=== PATIENT | male | born 2005 | race Asian ===

== ENCOUNTER 2023-01-13 04:57 | Emergency (ER) | payer OTHER ==
[2023-01-13 05:23] VITALS: TEMP 98.2; BMI 35.2
[2023-01-13] MEDS ORDERED: ACETAMINOPHEN 1000 MG/100 ML BAG IVPB ONE (05:49)
[2023-01-13] MEDS ORDERED: ACETAMINOPHEN INJECTION 100 ML IVPB ONE (06:24)
[2023-01-13 06:36] LABS: BASO % 0.5 % (0-2.0); EOS % 0.8 % (0-4.5); HEMATOCRIT 43.4 % (35.4-49); HEMOGLOBIN 14.3 GM/dL (11.7-16.9); LYMPH % 16.1 % (8-40); MCH 27.9 pg (25.7-33.7); MEAN CELL VOLUME 84.5 fl (80-96); MEAN PLT VOLUME 8.8 fl (7.5-11.1); MONO % 6.9 % (3.8-10.2); NEUT % 75.7 % (42.8-82.8); PLATELET COUNT 236 10^3/uL (134-434); RBC 5.13 M/mm3 (4.00-5.60); WHITE BLOOD COUNT 11.6 K/mm3 (4.0-10.0)
[2023-01-13 07:00] LABS: CHLORIDE 95 mmol/L (98-107)
[2023-01-13 07:02] LABS: CALCIUM 8.3 mg/dL (8.5-10.1)
[2023-01-13 07:03] LABS: ALBUMIN 3.2 g/dl (3.4-5.0); BLOOD UREA NITROGEN 16.8 mg/dL (7-18); GLUCOSE,RANDOM 87 mg/dL (74-106); MAGNESIUM 2.6 mg/dL (1.8-2.4)
[2023-01-13 07:08] LABS: TOT PROT 11.5 g/dl (6.4-8.2)
[2023-01-13 09:46] LABS: ALBUMIN 3.9 g/dl (3.4-5.0); CALCIUM 8.6 mg/dL (8.5-10.1)
[2023-01-13 09:47] LABS: BLOOD UREA NITROGEN 16.6 mg/dL (7-18); MAGNESIUM 2.1 mg/dL (1.8-2.4)
[2023-01-13 09:50] LABS: CREATININE 0.9 mg/dL (0.55-1.3)
[2023-01-13 09:52] LABS: BILIRUBIN,TOTAL 0.5 mg/dL (0.2-1)
[2023-01-13 10:40] VITALS: BP 127/75; PULSE 96; RESP 18
== END 2023-01-13 10:44 | disposition home or self-care (01) ==
LOC: JER 04:57
PROC: 3E033NZ Introduction of Analgesics, Hypnotics, Sedatives into Peripheral Vein, Percutaneous Approach (ICD-10-PCS; principal; 2023-01-13)
DX: R51.9 Headache, unspecified (principal); S30.1XXA Contusion of abdominal wall, initial encounter; V40.0XXA Car driver injured in collision with pedestrian or animal in nontraffic accident, initial encounter; Y93.89 Activity, other specified; Y92.410 Unspecified street and highway as the place of occurrence of the external cause
CPT/HCPCS: 36415; 70450-TC; 71260-TC; 72125-TC; 74177-TC; 80053; 83735; 85025; 99285-25; Q9967